=== PATIENT | male | born 1930 | race Caucasian/White ===

== ENCOUNTER 2018-11-12 16:08 | Emergency (ER) | payer MEDICARE ==
[~2018-11-12] VITALS: Ht 165.1 cm; Wt 58.1 kg
[2018-11-12 16:15] VITALS: BP 140/90
[2018-11-12] MEDS ORDERED: KETOROLAC TROMETH 60MG/2ML VIAL IM ONE (22:45)
== END 2018-11-12 23:53 | disposition home or self-care (01) ==
LOC: EDBD 16:08 → ER 16:17
DX: M50.320 Other cervical disc degeneration, mid-cervical region, unspecified level (principal); M51.34 Other intervertebral disc degeneration, thoracic region; M62.838 Other muscle spasm; F17.210 Nicotine dependence, cigarettes, uncomplicated
CPT/HCPCS: 72040; 72125; 72128; 93005; 96372; 99284; J1885

== ENCOUNTER 2019-01-02 11:05 | Emergency (ER) | payer SELFPAY ==
[~2019-01-02] VITALS: Ht 165.1 cm; Wt 55.3 kg
[2019-01-02 11:17] VITALS: BP 157/94
[2019-01-02] MEDS ORDERED: cefTRIAXone 1GM/50ML D5W 50 ML IV ONE ×2 (11:45→12:29)
[2019-01-02 12:02] LABS: Basophils # (auto) 0.1 uL; Basophils % (auto) 0.5 % (0.0-2.0); Eosinophils # (auto) 0.1 uL; Eosinophils % (auto) 0.5 % (0.0-7.0); Hematocrit 40.9 % (41.0-53.0); Hemoglobin 13.6 g/dL (13.5-17.5); Lymphocytes # (auto) 0.8 uL; Lymphocytes % (auto) 6.9 % (10.0-50.0); Mean Corpuscular Hgb Conc. 33.3 g/dL (32.0-36.0); Mean Corpuscular Volume 96.3 fL (80.0-100.0); Monocytes % (auto) 8.7 % (0.0-12.0); Neutrophils # (auto) 9.7 uL; Neutrophils % (auto) 83.4 % (37.0-80.0); Platelet Count (auto) 318 10^3/uL (140-450); Red Blood Cells 4.25 10^6/uL (4.5-5.90); Red Cell Distribution Width 15.4 % (11.8-14.3); White Blood Cell 11.6 10^3/uL (4.4-10.8)
[2019-01-02 12:47] LABS: Calcium 9.9 mg/dL (8.5-10.1); Potassium 3.7 mmol/L (3.5-5.1)
[2019-01-02 12:50] LABS: BUN/Creatinine Ratio 15.2
== END 2019-01-02 13:01 | disposition home or self-care (01) ==
LOC: ER 11:05
DX: S61.431A Puncture wound without foreign body of right hand, initial encounter (principal); L08.9 Local infection of the skin and subcutaneous tissue, unspecified; F17.210 Nicotine dependence, cigarettes, uncomplicated; W22.8XXA Striking against or struck by other objects, initial encounter; Y93.89 Activity, other specified; Y99.8 Other external cause status; Y92.89 Other specified places as the place of occurrence of the external cause
CPT/HCPCS: 36415; 73130; 80048; 85025; 96365; 99284; J0696

== ENCOUNTER 2019-01-03 11:05 | Emergency (ER) | payer SELFPAY ==
[~2019-01-03] VITALS: Ht 165.1 cm; Wt 55.3 kg
[2019-01-03 11:10] VITALS: BP 118/72
[2019-01-03] MEDS ORDERED: cefTRIAXone 1GM/50ML D5W 50 ML IV ONE (12:00)
== END 2019-01-03 12:46 | disposition home or self-care (01) ==
LOC: ER 11:07
DX: S61.431D Puncture wound without foreign body of right hand, subsequent encounter (principal); F17.210 Nicotine dependence, cigarettes, uncomplicated; Z79.2 Long term (current) use of antibiotics; Z48.01 Encounter for change or removal of surgical wound dressing; X58.XXXD Exposure to other specified factors, subsequent encounter
CPT/HCPCS: 96365; 99283; J0696

== ENCOUNTER 2019-02-06 21:29 | Inpatient (IN) | payer MEDICARE, OTHER | END 2019-02-09 15:19 | disposition home or self-care (01) | LOC: ER 21:29 → OVERFLOW 21:30 → EAST 02-07 11:36 | DX: L03.113 Cellulitis of right upper limb (principal); M25.421 Effusion, right elbow ==